=== PATIENT | male | born 1960 ===

== ENCOUNTER 2020-02-12 07:06 | Observation (INO) | payer MEDICARE, OTHER ==
[2020-02-12] MEDS ORDERED: ASPIRIN EC 325 MG TAB PO ONE (08:26)
[2020-02-12 08:57] LABS: Basophils # (Auto) 0.1 K/mm3 (0.0-0.1); Basophils % (Auto) 2.1 % (0.0-1.8); Eosinophils # (Auto) 0.3 K/mm3 (0.0-0.4); Eosinophils % (Auto) 6.3 % (0.0-4.3); Hematocrit 30.8 % (35.5-45.6); Hemoglobin 10.1 gm/dl (11.8-15.2); Lymphocytes # (Auto) 0.5 K/mm3 (1.2-5.4); Lymphocytes % (Auto) 10.3 % (13.4-35.0); Mean Corpuscular HGB Conc 33 % (32-34); Mean Corpuscular Volume 72 fl (84-94); Monocytes # (Auto) 0.6 K/mm3 (0.0-0.8); Monocytes % (Auto) 12.8 % (0.0-7.3); Platelet Count 119 K/mm3 (140-440); Red Blood Count 4.29 M/mm3 (3.65-5.03); Red Cell Distribution Width 17.9 % (13.2-15.2)
[2020-02-12] MEDS ORDERED: SODIUM CHLORIDE 0.9% 500 ML 500 ML IV SCH (09:00)
[2020-02-12] MEDS ORDERED: VERAPAMIL 5 MG/2 ML INJ ONE (09:10)
[2020-02-12] MEDS ORDERED: HEPARIN/NS 5000 UNIT/500ML 0 ML IR ONE (09:10)
[2020-02-12] MEDS ORDERED: HEPARIN 10,000 UNITS/10 ML VIAL ONE (09:10)
[2020-02-12] MEDS ORDERED: NITROGLYCERIN SYRINGE 3 ML ONE (09:11)
[2020-02-12] MEDS ORDERED: LIDOCAINE (2%) 20 MG/1 ML VIAL 20 ML MDV INFILTRATI ONE (09:11)
[2020-02-12 09:28] LABS: Calcium 9.6 mg/dL (8.4-10.2)
[2020-02-12 09:41] LABS: INR 1.38 (0.87-1.13)
[2020-02-12] MEDS ORDERED: WATER FOR INJ Sterile (PF) 10 ML ONE (09:45)
[2020-02-12] MEDS ORDERED: BIVALIRUDIN 250 MG INJ IV ONE (09:46)
[2020-02-12] MEDS ORDERED: SODIUM CHLORIDE 0.9% 100 ML ONE (09:46)
[2020-02-12] MEDS ORDERED: SODIUM CHLORIDE 0.9% 500 ML 1,000 ML ONE (09:46)
[2020-02-12] MEDS: fentaNYL 100 MCG/2 ML INJ ONE ×2 (10:44→10:46)
[2020-02-12] MEDS: MIDAZOLAM 2 MG/2 ML INJ ONE ×2 (10:44→10:46)
[2020-02-12] MEDS ORDERED: SODIUM CHLORIDE 0.9% 50 ML ONE (10:59)
[2020-02-12] MEDS: BIVALIRUDIN 250 MG INJ IV ONE ×2 (11:05→11:06)
[2020-02-12] MEDS ORDERED: CLOPIDOGREL 300 MG TAB ONE (11:22)
[2020-02-12] MEDS ORDERED: ALUM-MAG HYDROXIDE-SIMETHICONE 200-200-20MG/5ML ORAL LIQD 30 ML ONE (11:22)
[2020-02-12] MEDS ORDERED: ONDANSETRON 4 MG/2 ML INJ IV PRN (11:53)
[2020-02-12] MEDS ORDERED: HYDROcodone/ACETAMINOPHEN 5-325 MG TAB PO PRN (11:53)
[2020-02-12] MEDS ORDERED: ZOLPIDEM 5 MG TAB PO PRN (11:53)
--- NOTE | 2020-02-12 12:01 | Event Note ---
Date: 02/12/20 Patient presented for outpatient cardiac catheterization, we found severe two- vessel disease of the proximal circumflex and mid right coronary arteries. The patient underwent successful two-vessel coronary intervention with drug-eluting stents implanted the proximal circumflex and mid right coronary arteries, no complications. The patient will be admitted on guideline directed medical therapy. We have consulted the patient's chair and couch maker Dr. Clifford, to administer routine hemodialysis tomorrow morning prior to the patient's anticipated discharge.
--- NOTE | 2020-02-12 15:15 | Cardiac Catherization Report ---
CARDIAC CATHETERIZATION AND CORONARY ANGIOPLASTY REPORT REASON FOR PROCEDURE: The patient is a 59-year-old man who presents for cardiac catheterization, indication chest pain and preoperative assessment for renal transplantation. PROCEDURES: 1. Left heart catheterization. 2. Selective left and right coronary angiography. 3. Left ventricular angiography. 4. Coronary angioplasty and stenting of the circumflex artery. 5. Second-vessel coronary angioplasty and stenting of the right coronary artery. 6. Sedation time, start 10:42, end 11:31. I personally supervised the moderate sedation during the entire procedure. The patient was prepped and draped in a sterile fashion after informed consent. The right femoral artery was entered using the Seldinger technique followed by placement of a 6-[place] sheath. Selective left and right coronary angiography was performed using #4 right and left Felix catheters. Pigtail catheter was used for left ventricular angiography. The angiograms were reviewed. CORONARY ANGIOGRAPHY: There was moderate, diffuse coronary calcification involving both left and right coronary systems. The left main coronary artery was free of significant disease. The left anterior descending artery contained mild luminal irregularities in its proximal and mid segments, mild irregularities of the diagonal branches. A large ramus intermedius artery contained mild diffuse atherosclerosis of its proximal and mid segments. The circumflex artery contained an eccentric, 75-80% stenosis, most discernible in the left anterior oblique projections. This lesion was associated with vsaottly-po-nndjaf calcification. Otherwise, mild diffuse atherosclerosis of the rest of the circumflex system. The right coronary artery was a relatively small caliber, but dominant vessel. This vessel contained a long segment of severe diffuse disease of its mid portion, culminating in a greater than 90% focal stenosis just before the acute margin. Left ventricular systolic function was at the lower limits of normal with ejection fraction estimated at 50%. CORONARY ANGIOPLASTY: After review of the angiograms, ad hoc coronary intervention was recommended to the circumflex and right coronary systems. We proceeded for initial target the eccentric, 75-80% stenosis of the proximal circumflex. We used a #3.5 XB guiding catheter and advanced it to the left coronary ostium. A 0.014-inch Crotch Piece Baster 50 guidewire was then advanced across the lesional segment into the circumflex system. Following wire placement, the lesion was predilated using a 3.0 mm balloon catheter. Following that, we then deployed a 3.5 x 12 mm drug-eluting stent, covering the lesional segment and inflating to optimal pressures. Following stenting, there was an excellent angiographic result, 0 residual stenosis and TANIYA 3 flow was maintained down the circumflex system. We then turned our attention to the second vessel that was severely stenosed. We then exchanged for a #4 right Felix guiding catheter and advanced to the right coronary ostium. Another Crotch Piece Baster 50 guidewire was then advanced into the vessel, across the lesional segment. Following wire placement, the long lesional segment was predilated using a 2.5 mm balloon catheter. We then deployed a 2.5 x 28 mm drug-eluting stent, which covered the entire lesional segment. The stent was deployed to optimal pressures. Following stent deployment in the right coronary artery, there was an excellent angiographic result, 0 residual stenosis and TANIYA 3 flow was maintained down the vessel. The procedure was well tolerated by the patient and there were no complications. The catheters and the wires were removed, the sheath was left in situ to be taken out by manual compression after resolution of intraprocedure anticoagulation. CONCLUSION: 1. Severe 2-vessel coronary artery disease. 2. Successful angioplasty and stenting of the proximal circumflex artery, with implantation of a 3.5 x 12 mm drug-eluting stent. 3. Successful second-vessel angioplasty and stenting of the mid right coronary artery with implantation of a 2.5 x 28 mm drug-eluting stent. 4. Left ventricular systolic function at the lower limits of normal, ejection fraction 50%. 5. THE PATIENT HAS AN ALLERGY TO HEPARIN (thrombocytopenia, intravenous Angiomax was used for anticoagulation). The patient will be admitted for post-procedure supportive management, and dual-antiplatelet therapy and other guideline directed medical therapy will be initiated. JOB# [id number] CA/NTS
[2020-02-12] MEDS: carvediloL 12.5 MG TAB PO SCH ×2 (17:14→22:45)
[2020-02-12] MEDS ORDERED: EPOETIN ALFA 10,000 UNIT/1 ML INJ IV PRN (21:06)
[2020-02-12] MEDS ORDERED: SODIUM CHLORIDE 0.9% 100 ML IV PRN (21:06)
[2020-02-13 05:40] LABS: Hematocrit 28.8 % (35.5-45.6); Hemoglobin 9.4 gm/dl (11.8-15.2); Mean Corpuscular HGB Conc 33 % (32-34); Mean Corpuscular Volume 73 fl (84-94); Platelet Count 104 K/mm3 (140-440); Red Blood Count 3.96 M/mm3 (3.65-5.03); Red Cell Distribution Width 17.9 % (13.2-15.2)
[2020-02-13 05:59] LABS: Creatine Kinase MB 22.6 ng/mL (0.0-4.0)
[2020-02-13 06:03] LABS: Calcium 9.4 mg/dL (8.4-10.2)
[2020-02-13 06:47] LABS: Total Cells Counted 100
[2020-02-13 06:49] LABS: Anisocytosis 1+; Hypochromasia 1+; Schistocytes Few; Target Cells Few
[2020-02-13 06:50] LABS: Ovalocytes Few; Platelet Estimate Consistent w Auto
--- NOTE | 2020-02-13 08:11 | XRay Report ---
XR chest 1V ap INDICATION / CLINICAL INFORMATION: post pci. COMPARISON: None available. FINDINGS: SUPPORT DEVICES: None. HEART / MEDIASTINUM: There is cardiac enlargement. No significant pulmonary vasculature congestion. LUNGS / PLEURA: No significant pulmonary or pleural abnormality. No pneumothorax. ADDITIONAL FINDINGS: No significant additional findings. IMPRESSION: 1. No acute findings. Signer Name: Stevenson Rao MD Signed: 02/13/2020 8:07 AM Workstation Name: [id number]
[2020-02-13] MEDS ORDERED: ASPIRIN EC 325 MG TAB PO SCH (10:00)
[2020-02-13] MEDS ORDERED: CLOPIDOGREL 75 MG TAB PO SCH (10:00)
[2020-02-13] MEDS ORDERED: FUROSEMIDE 40 MG TAB PO SCH (10:00)
[2020-02-13] MEDS ORDERED: TAMSULOSIN 0.4 MG CAP PO SCH (10:00)
--- NOTE | 2020-02-13 11:09 | Consultation ---
History of Present Illness - Reason for Consult Consult date: 02/13/20 end stage renal disease Requesting physician: JOSE CARLOS FORD - History of Present Illness 59-year-old male with history of diabetes mellitus, hypertension complicated by end-stage renal disease on hemodialysis Sunday and Sunday schedule. Patient had a stress test done as an outpatient which was positive and so sent for cardiac catheterization. He had severe two-vessel disease of the proximal circumflex and mid right coronary artery and so had angioplasty and drug-eluting stents implanted. He had no chest pain shortness of breath fever cough or other symptoms. He feels good and would like to be discharged home today. Past History Past Medical History: anemia, diabetes, GERD, heart failure, hypertension Past Surgical History: cataract removal, Other (AV fistula placement, angioplasty of AV fistula) Social history: , lives with family, other (Retired from the [employer] now works for the [employer]). denies: smoking, alcohol abuse, prescription drug abuse, IV drug use Family history: stroke (Mother from a stroke), other (Father in a [employer] hehicle accidents.) Medications and Allergies Allergies Allergy/AdvReac Type Severity Reaction Status Date / Time REGULO Inhibitors Allergy Hives Verified 02/12/20 08:24 heparin Allergy HIT Verified 02/12/20 10:00 latex Allergy Rash Verified 02/12/20 10:19 Home Medications Medication Instructions Recorded Confirmed Last Taken Type Aspirin EC [Ecotrin] 325 mg PO QDAY #30 tablet 02/12/20 Unknown Rx AtorvaSTATin [Lipitor] 40 mg PO QHS #30 tablet 02/12/20 Unknown Rx Cholecalciferol Vit D3 [Vitamin D3 1,000 unit PO QDAY 02/12/20 02/12/20 02/12/20 History 1,000 UNIT TAB] Clopidogrel [Plavix] 75 mg PO QDAY #30 tablet 02/12/20 Unknown Rx Furosemide [Lasix TAB] 40 mg PO QDAY 02/12/20 02/12/20 02/12/20 History ISOSORBIDE MONOnitrate [Imdur ER] 30 mg PO QDAY #30 tablet 02/12/20 Unknown Rx Sucroferric Oxyhydroxide(Nf) 3 tab PO TID PRN 02/12/20 02/12/20 02/12/20 History [Velphoro (Nf)] Tamsulosin [Flomax] 0.4 mg PO QDAY 02/12/20 02/12/20 02/12/20 History carvediloL [Coreg] 12.5 mg PO BID 02/12/20 02/12/20 02/12/20 History Active Meds: Active Medications Hydrocodone Bitart/Acetaminophen ([place] 5/325) 1 each PO Q6H PRN PRN Reason: Pain, Moderate (4-6) Aspirin (Ecotrin) 325 mg PO QDAY [facility] Last Admin: 02/13/20 09:27 Dose: 325 mg Documented by: Atorvastatin Calcium (Lipitor) 40 mg PO QHS [facility] Last Admin: 02/12/20 22:45 Dose: 40 mg Documented by: Carvedilol (Coreg) 12.5 mg PO BID [facility] Last Admin: 02/12/20 22:45 Dose: 12.5 mg Documented by: Clopidogrel Bisulfate (Plavix) 75 mg PO QDAY [facility] Last Admin: 02/13/20 09:27 Dose: 75 mg Documented by: Epoetin Roberto (Procrit) 10,000 unit IV BRANDI PRN PRN Reason: hemodialysis Furosemide (Lasix) 40 mg PO QDAY [facility] Sodium Chloride (Nacl 0.9%) 100 mls @ 999 mls/hr IV BRANDI PRN PRN Reason: Hypotension Isosorbide Mononitrate (Imdur) 30 mg PO QDAY [facility] Last Admin: 02/12/20 17:13 Dose: 30 mg Documented by: Ondansetron HCl (Zofran) 4 mg IV Q8H PRN PRN Reason: N/V unrelieved by Reglan Tamsulosin HCl (Flomax) 0.4 mg PO QDAY [facility] Last Admin: 02/13/20 09:27 Dose: 0.4 mg Documented by: Zolpidem Tartrate (Ambien) 5 mg PO QHS PRN PRN Reason: Sleep Review of Systems All systems: negative (Constitutional: no fever or chills. No anorexia or weight loss. HEENT: No sore throat or sinus drainage no hearing or vision impairment . Cardiovascular: No chest pain, shortness of breath, palpitations, lower extremity swelling or dizziness. Respiratory: No cough, sputum, shortness of breath, hemoptysis or wheezing. Gastrointestinal: No nausea, vomiting, diarrhea, abdominal pain, hematemesis or melena. Genitourinary: No frequency urgency dysuria or hematuria. hematologic: No abnormal bleeding or bruising. Integumentary: no pruritus or rash. Neurological: No headache no focal weakness or numbness, no syncope or seizures. Musculoskeletal: No joint pains no stiffness. Psychiatry: no anxiety or depression) Exam - Vital Signs Vital signs: Vital Signs Temp Pulse Resp BP Pulse Ox 98.4 F 72 18 158/82 97 02/12/20 09:29 02/12/20 09:29 02/12/20 09:29 02/12/20 09:29 02/12/20 09:29 - Physical Exam Narrative exam: Middle-aged male lying in bed in no acute distress HEENT: NCAT, pink oral mucous membrane Neck: Supple, no venous distention CVS: S1S2 RRR with no murmur, rub or gallop Chest: Clear to auscultation Abdomen: Protuberant, soft, nontender, no organomegaly, bowel sounds are present Extremities: No edema Genitourinary deferred Skin warm and dry Neuro: Awake, alert no focal deficits Results - Lab Results 02/13/20 05:15 02/13/20 05:15 Most recent lab results Calcium 9.4 mg/dL (8.4-10.2) 02/13/20 05:15 Assessment and Plan - Patient Problems (1) End stage renal disease Current Visit: Yes Status: Acute Plan to address problem: Hemodialysis today and then patient will be discharged and resume his regular dialysis next week at the clinic (2) Hypertensive chronic kidney disease with stage 5 chronic kidney disease or end stage renal disease Current Visit: Yes Status: Acute Plan to address problem: Follow-up blood pressure on current medications. (3) Type 2 diabetes mellitus with diabetic nephropathy Current Visit: Yes Status: Acute Plan to address problem: Blood sugar management by primary attending (4) Anemia in chronic kidney disease Current Visit: Yes Status: Acute Plan to address problem: Erythropoietin on dialysis. (5) Atherosclerotic heart disease of [place] coronary artery without angina pectoris Current Visit: Yes Status: Acute Plan to address problem: Status post percutaneous coronary intervention. Follow-up with [employer]. Continue antiplatelet agents
--- NOTE | 2020-02-13 12:39 | Discharge Summary ---
Short Stay Discharge Plan Activity: advance as tolerated Weight Bearing Status: Full Weight Bearing Diet: low fat, low cholesterol, low salt, renal Wound: keep clean and dry Special Instructions: no heavy lifting (3 days) Additional Instructions: CONTINUE HOME MEDS, ADD ASA, PLAVIX, ATROVASTATIN, IMDUR PRESCRIBED. Follow up with: ANA MARIA GOLDEN DO [Primary Care Provider] - 7 Days RONNIE CLEVELAND MD [Staff Physician] - 7 Days Prescriptions: Aspirin EC [Ecotrin] 325 mg PO QDAY #30 tablet ISOSORBIDE MONOnitrate [Imdur ER] 30 mg PO QDAY #30 tablet AtorvaSTATin [Lipitor] 40 mg PO QHS #30 tablet Clopidogrel [Plavix] 75 mg PO QDAY #30 tablet
[2020-02-13 13:47] LABS: Hepatitis B Surface Antigen Non-Reactive (Negative); Hepatitis C Virus Antibody Non-Reactive (NonReactive)
[2020-02-13 17:37] VITALS: BP 164/83
== END 2020-02-13 16:20 | disposition home or self-care (01) ==
LOC: CATHLABREC 07:06 → 4A 11:53
PROVIDERS: ADMIT Internal Medicine Cardiovascular Disease; ATTEND Internal Medicine Cardiovascular Disease
DX: I12.0 Hypertensive chronic kidney disease with stage 5 chronic kidney disease or end stage renal disease (principal); N18.6 End stage renal disease; E11.22 Type 2 diabetes mellitus with diabetic chronic kidney disease; I25.10 Atherosclerotic heart disease of native coronary artery without angina pectoris; E11.21 Type 2 diabetes mellitus with diabetic nephropathy; D63.1 Anemia in chronic kidney disease; K21.9 Gastro-esophageal reflux disease without esophagitis; Z99.2 Dependence on renal dialysis; Z98.61 Coronary angioplasty status; Z79.899 Other long term (current) drug therapy; Z98.49 Cataract extraction status, unspecified eye; Z98.890 Other specified postprocedural states; Z79.82 Long term (current) use of aspirin; Z79.01 Long term (current) use of anticoagulants
CPT/HCPCS: 36415; 71045; 80048; 80074; 82550; 82553; 84484; 85007; 85025; 85610; 85730; 93005; 93458; A9270; C1725; C1769; C1874; C1887; C1894; C9600; C9601; G0378; J0583; J0885; J2250; J3010; J7040; 92928; 92929; J1644; Q9967